=== PATIENT | female | born 1945 | race Caucasian/White ===

== ENCOUNTER 2016-04-05 13:33 | Emergency (ER) | payer OTHER ==
[~2016-04-05] VITALS: Ht 170.2 cm; Wt 83.5 kg
--- NOTE | ~2016-04-05 | EKG ---
[address] [address] [place] [address] ELECTROCARDIOGRAM REPORT Name: BRIDGETTE NIEVESJUNIE Room #: [id number] Admission: 04/05/16 Attend Phys: Discharge: 04/05/16 Date of : 47 Report #: [id number] THIS REPORT FOR: //name// [facility] ED Test Date: 2016-04-05 Test Time: 13:35:16 Pat Name: BRIDGETTE NIEVES Department: Room: Gender: F [employer]: [facility] : 1945 Requested By: David Reed Order Number: [id number] MD: Ricardo Bartlett Measurements Intervals [place] Rate: 81 P: 73 OR: 138 QRS: -27 QRSD: 81 T: 16 QT: 376 QTc: 437 Interpretive Statements Sinus rhythm Ventricular premature complex Borderline left axis deviation No previous ECG available for comparison Electronically Signed On 04-06-2016 8:54:37 [employer] by Ricardo Bartlett [email or web address] <ELECTRONICALLY SIGNED> By: Ricardo Bartlett MD, [facility] 04/06/16 [id number] Ricardo Bartlett MD, FACC /EPI
[~2016-04-05 13:33] MED LIST: CALCIUM OYSTER500 MG PO; CERTAGEN SOL1 BO1 NG; FISHOIL; VITAMIN B; WELLBUTRIN SR150 MG PO
[2016-04-05] MEDS ORDERED: SINGULAIR 10 MG10 M1 PO (14:06)
[2016-04-05] MEDS ORDERED: EFFEXOR 5050 MG/1 T1 PO (14:06)
[2016-04-05 14:38] LABS: BASOPHILS 0.6 % (0.0-2.0); EOSINOPHILS 4.2 % (0.0-3.0); HEMATOCRIT 41.6 % (37.0-47.0); LYMPHOCYTES 35.8 % (24.0-44.0); MCH 28.8 pg (26.0-34.0); MCHC 33.7 % (28.0-37.0); MCV 85.4 fL (80.0-100.0); MONOCYTES 4.4 % (1.0-8.0); PLATELET COUNT 270 thou/uL (150-400); RBC 4.87 mil/uL (4.20-5.00); RDW 14.8 % (10.5-14.5); WBC 7.3 thou/uL (4.0-11.0)
[2016-04-05 14:42] LABS: MANUAL DIFF NO
[2016-04-05 14:45] LABS: ANION GAP 12 mmol/L (7-16); BUN 14 mg/dL (7-18); CALCIUM 9.5 mg/dL (8.5-10.1); CHLORIDE 103 mmol/L (98-107); CO2 25 mmol/L (21-32); CREATININE 1.1 mg/dL (0.6-1.3); GLUCOSE 159 mg/dL (70-99); POTASSIUM 4.2 mmol/L (3.5-5.1); SODIUM 140 mmol/L (136-145)
[2016-04-05 14:56] LABS: ALBUMIN 3.6 g/dL (3.4-5.0); ALKALINE PHOSPHATASE 74 U/L (46-116); MAGNESIUM 1.7 mg/dL (1.8-2.4); NT-PRO BRAIN NAT PEPTIDE 44 pg/mL (<300); SGOT 22 U/L (15-37); SGPT 31 U/L (30-65); TOTAL BILIRUBIN 0.3 mg/dL (<0.1-1.0); TOTAL PROTEIN 7.1 g/dL (6.4-8.2); TROPONIN-I < 0.04 ng/mL (<0.04-0.07)
[2016-04-05 14:57] LABS: APTT 23.3 Seconds (24.5-32.8); PROTIME 10.7 Seconds (9.3-11.4)
[2016-04-05] MEDS ORDERED: TRAMADOL 50 MG50 MG PO (15:19)
[2016-04-05] MEDS ORDERED: PREDNISONE 20 M20 MG PO (15:19)
[2016-04-05] MEDS ORDERED: VENTOLIN HFA 1818 GM INH (15:19)
[2016-04-05 15:35] VITALS: BP 128/65
== END 2016-04-05 15:45 | disposition home or self-care (01) ==
LOC: ER 13:33
PROVIDERS: Emergency Medicine
DX: M94.0 Chondrocostal junction syndrome [Tietze] (principal); J40 Bronchitis, not specified as acute or chronic; R09.89 Other specified symptoms and signs involving the circulatory and respiratory systems; E11.9 Type 2 diabetes mellitus without complications; R06.00 Dyspnea, unspecified; J45.909 Unspecified asthma, uncomplicated; Z88.8 Allergy status to other drugs, medicaments and biological substances; Z90.710 Acquired absence of both cervix and uterus